=== PATIENT | male | born 1980 | race African-American/Black ===

== ENCOUNTER 2021-10-08 10:45 | Emergency (ER) | payer SELFPAY ==
[2021-10-08 11:07] VITALS: BP 115/70; PULSE 82; TEMP 98.8; BMI 23.0
[2021-10-12 16:07] LABS: SARS-CoV-2 NAA Not Detected (Not Detected)
== END 2021-10-08 12:00 | disposition home or self-care (01) ==
LOC: JER 10:45
DX: J11.1 Influenza due to unidentified influenza virus with other respiratory manifestations (principal)
CPT/HCPCS: 99283-25; C9803; U0003; U0005